=== PATIENT | female | born 1945 | race Hispanic/Latino ===

== ENCOUNTER 2020-08-25 10:47 | Outpatient (CLI) | payer MEDICARE ==
--- NOTE | 2020-08-26 08:56 | Mammography Report ---
DIGITAL SCREENING MAMMOGRAM WITH CAD, 08/26/2020 CLINICAL INFORMATION / INDICATION: Routine screening mammography. SCREENING WITH JAMISON TECHNIQUE: Digital bilateral 2D mammography was obtained in the craniocaudal and mediolateral obliqu e projections. This examination was interpreted with the benefit of Computer-Aided Detection analysis . COMPARISON: 08/25/2019, 08/23/2018 FINDINGS: Breast Density: There are scattered areas of fibroglandular density. No dominant mass, suspicious calcifications, or architectural distortion in either breast. Postsurgical scar is noted on the left. IMPRESSION: No mammographic evidence of malignancy. Follow up recommendation: Routine yearly BI-RADS Category 2: Benign. A "normal" or negative report should not discourage follow up or biopsy of a clinically significant f inding. A written summary of these findings will be mailed to the patient. The patient will be entered into a mammography reporting system which will generate a reminder letter for the patient's next appointmen t at the appropriate interval. The [employer] recommends yearly mammograms starting at age 40 and continuing as l lunane as a woman is in good health. Breast MRI is recommended for women with an approximate 20-25% or greater lifetime risk of breast cancer, including women with a strong family history of breast or ova toni cancer or who have been treated for Hodgkin's disease. Signer Name: Esdras Hammond MD Signed: 08/26/2020 8:52 AM Workstation Name: [email or web address]
--- NOTE | 2020-08-26 08:56 | Mammography Report ---
DIGITAL SCREENING MAMMOGRAM WITH CAD, 08/26/2020 CLINICAL INFORMATION / INDICATION: Routine screening mammography. SCREENING WITH JAMISON TECHNIQUE: Digital bilateral 2D mammography was obtained in the craniocaudal and mediolateral obliqu e projections. This examination was interpreted with the benefit of Computer-Aided Detection analysis . COMPARISON: 08/25/2019, 08/23/2018 FINDINGS: Breast Density: There are scattered areas of fibroglandular density. No dominant mass, suspicious calcifications, or architectural distortion in either breast. Postsurgical scar is noted on the left. IMPRESSION: No mammographic evidence of malignancy. Follow up recommendation: Routine yearly BI-RADS Category 2: Benign. A "normal" or negative report should not discourage follow up or biopsy of a clinically significant f inding. A written summary of these findings will be mailed to the patient. The patient will be entered into a mammography reporting system which will generate a reminder letter for the patient's next appointmen t at the appropriate interval. The [employer] recommends yearly mammograms starting at age 40 and continuing as l luanne as a woman is in good health. Breast MRI is recommended for women with an approximate 20-25% or greater lifetime risk of breast cancer, including women with a strong family history of breast or ova toni cancer or who have been treated for Hodgkin's disease. Signer Name: Esdras Hammond MD Signed: 08/26/2020 8:52 AM Workstation Name: [email or web address]
== END 2020-08-25 10:48 | disposition home or self-care (01) ==
LOC: SPVWC 10:47
PROVIDERS: ATTEND Surgery
DX: Z12.31 Encounter for screening mammogram for malignant neoplasm of breast (principal)
CPT/HCPCS: 77063; 77067

== ENCOUNTER 2021-08-24 12:41 | Outpatient (CLI) | payer MEDICARE ==
--- NOTE | 2021-08-26 10:04 | Mammography Report ---
DIGITAL SCREENING MAMMOGRAM WITH CAD, 08/24/2021 CLINICAL INFORMATION / INDICATION: Routine screening mammography. TECHNIQUE: Digital bilateral 2D mammography was obtained in the craniocaudal and mediolateral oblique projections. This examination was interpreted with the benefit of Computer-Aided Detection analysis. COMPARISON: 08/02/2016 through 08/25/2020. FINDINGS: Breast Density: There are scattered areas of fibroglandular density. No dominant mass, suspicious calcifications, or architectural distortion in either breast. Left breast scar is again noted. IMPRESSION: No mammographic evidence of malignancy. Follow up recommendation: Routine yearly screening mammogram. BI-RADS Category 2: BENIGN. A "normal" or negative report should not discourage follow up or biopsy of a clinically significant f inding. A written summary of these findings will be mailed to the patient. The patient will be entered into a mammography reporting system which will generate a reminder letter for the patient's next appointmen t at the appropriate interval. The [employer] recommends yearly mammograms starting at age 40 and continuing as l luanne as a woman is in good health. Breast MRI is recommended for women with an approximate 20-25% or greater lifetime risk of breast cancer, including women with a strong family history of breast or ova toni cancer or who have been treated for Hodgkin's disease. Signer Name: Tom Carrillo MD Signed: 08/26/2021 9:59 AM Workstation Name: [email or web address]
== END 2021-08-24 12:42 | disposition home or self-care (01) ==
LOC: SPVWC 12:41
PROVIDERS: ATTEND Family Medicine
DX: Z12.31 Encounter for screening mammogram for malignant neoplasm of breast (principal)
CPT/HCPCS: 77067